=== PATIENT | male | born 1975 | race Caucasian/White ===

== ENCOUNTER 2021-11-13 19:31 | Emergency (ER) | payer MEDICAID, SELFPAY ==
[2021-11-13 19:32] VITALS: BP 154/94; PULSE 118; RESP 18; TEMP 36.6; O2SAT 95; BMI 34.0
--- NOTE | 2021-11-13 19:38 | W.ED.ALCOHOL ---
HPI - Alcohol General: Chief Complaint: Alcohol Stated Complaint: etoh Time Seen by Provider: 11/13/21 19:36 History of Present Illness: Mr Edwards is a 46-year-old gentleman without significant past medical history presents to the emergency department due to concern over alcohol detox. He reports due to social stressors he has been drinking heavily for approximately 2 weeks, he endorses greater than a fifth of vodka per day. He denies suicidal or homicidal intent. He denies history of alcohol withdrawal seizures or hallucinations associated with alcohol withdrawal. He plans to have inpatient detox but they will not pick him up till tomorrow. He endorses generalized malaise, shakiness, sweats. Intensity of symptoms is moderate. Last drink was just prior to arrival. Otherwise denies medical complaints or trauma. No other specific changes in health, exacerbating, or alleviating factors identified. 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 Recent trauma: No Associated symptoms: Reports nausea, vomiting and other Review of Systems General: Reports: 10 or more systems reviewed and unremarkable except in HPI and below GI: Reports: nausea and vomiting PFSH ED PFSH: Medical History (Updated 11/21/21 @ 00:00 by ) GERD (gastroesophageal reflux disease) Surgical History (Updated 11/13/21 @ 20:07 by Brice Lezama MD) No significant past surgical history Social History (Updated 11/13/21 @ 20:07 by Brice Lezama MD) Alcohol intake: current Substance/Drug Use: current Substance/Drug use type: Marijuana Physical Exam Const: COMMON NORMALS: alert GENERAL APPEARANCE: cooperative and well developed HENMT: COMMON NORMALS: normocephalic and atraumatic HEAD & SCALP: normocephalic and atraumatic THROAT: posterior oropharynx normal Eye: COMMON NORMALS: conjunctivae normal CONJUNCTIVA: Yes conjunctivae normal SCLERA: sclerae normal Neck/C-Spine: COMMON NORMALS: supple GENERAL: Yes trachea midline Resp: COMMON NORMALS: clear to auscultation bilaterally EFFORT & INSPECTION: Yes able to speak in complete sentences AUSCULTATION: clear to auscultation bilaterally Cardio: COMMON NORMALS: regular rhythm RATE: tachycardic RHYTHM: regular rhythm GI: COMMON NORMALS: Soft to palpation PALPATION: Yes Soft to palpation and No Tenderness to palpation present (GI) Extremity: GENERAL: Yes normal exam except as noted and No edema Neuro: COMMON NORMALS: moves all extremities SENSORIUM/ORIENTATION: Yes alert and No Orientation impaired Psych: COMMON NORMALS: mental status grossly normal and Normal thought process present THOUGHT PROCESS: Normal thought process present Course ED course: - Patient was seen and evaluated by me at bedside - Patient placed on cardiac monitors, IV access obtained - Initial evaluation notable for exam as above - Labs personally interpreted by me - Fluids and antiemetic as well as benzodiazepines - Labs notable for no significant hematologic abnormality. Metabolic panel consistent with reported history. Alcohol level elevated. - Upon serial reexamination after treatment the patient was significantly improved. He tolerated p.o. intake and is able to ambulate with steady gait. - Based on patient history, evaluation, and testing as interpreted the most likely cause of the patient's condition is alcohol abuse - The results of ED evaluation were discussed with the patient including prescriptions and/or symptomatic cares (if applicable) including appropriate and responsible use, followup plan, and return precautions. The patient verbalized understanding and felt safe for discharge. - Patient discharged in satisfactory condition. Note: Click bubbles or prepopulated chicas in note writing are used for assistance with data collection and billing and are inherently more limited than narrative and other text portions of this note. Please use narrative for additional clinical history and defer to narrative/free test for any case of contradictory information. If information appears in only free text or click bubble it should be considered present or absent as reported. Please contact note loan underwriter for clarifications of clinical information or contradictory information. MDM is a brief summary, contradictory or erroneous seeming information should be clarified and full note should be reviewed. Vital Signs: Vital signs: Vital Signs Temperature 97.8 F 11/13/21 19:32 Pulse Rate 87 11/13/21 23:05 Respiratory Rate 18 11/13/21 23:05 Blood Pressure 139/75 11/13/21 23:05 Pulse Oximetry 96 11/13/21 23:05 MDM - Alcohol Medical Decision Making 46-year-old gentleman with history of alcohol abuse presenting for concern of withdrawal. Patient ethyl alcohol initially 244 and no concerning history regarding cessation of alcohol provided. Improved with treatment. Patient has outpatient plan, plan to discharge on Librium taper. Patient agreeable. Medical Records I reviewed the patient's medical records. Lab Data I reviewed the patient's lab results. : 11/13/21 20:15 11/13/21 20:15 Laboratory Results WBC 7.1 10^3/uL (4.0-10.0) 11/13/21 20:15 RBC 4.97 10^6/uL (4.1-5.3) 11/13/21 20:15 Hgb 14.7 g/dL (11.7-16.6) 11/13/21 20:15 Hct 42.1 % (42.0-52.0) 11/13/21 20:15 MCV 84.7 fl (80-94) 11/13/21 20:15 MCH 29.6 pg (28.0-34.0) 11/13/21 20:15 MCHC 34.9 g/dL (30.0-36.0) 11/13/21 20:15 RDW 12.7 % (12.1-15.1) 11/13/21 20:15 Plt Count 144 10^3/cmm (130-400) 11/13/21 20:15 MPV 9.9 fL (7.4-10.4) 11/13/21 20:15 Neut % (Auto) 63.4 % 11/13/21 20:15 Lymph % (Auto) 23.3 % 11/13/21 20:15 [place] % (Auto) 10.2 % 11/13/21 20:15 Eos % (Auto) 2.0 % 11/13/21 20:15 Baso % (Auto) 0.8 % 11/13/21 20:15 Neut # (Auto) 4.48 10^3/uL (1.8-7.7) 11/13/21 20:15 Lymph # (Auto) 1.7 10^3/uL (0.8-4.8) 11/13/21 20:15 [place] # (Auto) 0.7 10^3/uL (0.2-0.9) 11/13/21 20:15 Eos # (Auto) 0.1 10^3/uL (0.0-0.8) 11/13/21 20:15 Baso # (Auto) 0.1 10^3/uL (0.0-0.1) 11/13/21 20:15 Nucleated RBC % (auto) 0 % 11/13/21 20:15 Nucleated RBCs # 0.0 /100WBC 11/13/21 20:15 Sodium 137 mmol/L (136-145) 11/13/21 20:15 Potassium 3.5 mmol/L (3.5-5.1) 11/13/21 20:15 Chloride 96 mmol/L (98-107) L 11/13/21 20:15 Carbon Dioxide 21 mmol/L (22-29) L 11/13/21 20:15 Anion Gap 23.5 (5-19) H 11/13/21 20:15 BUN 10 mg/dL (6-20) 11/13/21 20:15 Creatinine 0.8 mg/dL (0.7-1.2) 11/13/21 20:15 GFR Calculation 104.5 mL/min (90-130) 11/13/21 20:15 Glucose 108 mg/dL (65-115) 11/13/21 20:15 Calculated Osmolality 284 mOsm/kg (285-295) L 11/13/21 20:15 Calcium 8.3 mg/dL (8.5-10.5) L 11/13/21 20:15 Total Bilirubin 0.6 mg/dL (0.15-1.2) 11/13/21 20:15 AST 106 U/L (0-40) H 11/13/21 20:15 ALT 73 U/L (0-41) H 11/13/21 20:15 Alkaline Phosphatase 96 IU/L (40-130) 11/13/21 20:15 Total Protein 8.8 g/dL (6.6-8.7) H 11/13/21 20:15 Albumin 4.7 g/dL (3.5-5.2) 11/13/21 20:15 Globulin 4.1 g/dL (1.3-4.6) 11/13/21 20:15 TSH 0.84 uIU/mL (0.27-4.20) 11/13/21 20:15 Salicylates < 0.3 mg/dL (3-10) L 11/13/21 20:15 Urine Opiates Screen Negative ng/mL (Negative) 11/13/21 20:15 Acetaminophen < 5.0 ug/mL (10-30) L 11/13/21 20:15 Ur Barbiturates Screen Negative ng/mL (Negative) 11/13/21 20:15 Ur Phencyclidine Scrn Negative ng/mL (Negative) 11/13/21 20:15 Ur Amphetamines Screen Negative ng/mL (Negative) 11/13/21 20:15 U Benzodiazepines Scrn Negative ng/mL (Negative) 11/13/21 20:15 Urine Cocaine Screen Negative ng/mL (Negative) 11/13/21 20:15 U Marijuana (THC) Screen Positive ng/mL (Negative) H 11/13/21 20:15 Ethyl Alcohol 244 mg/dL (0-10) H 11/13/21 20:15 Discharge Plan Discharge Patient Disposition: Home Clinical Impression: Alcoholic intoxication, Dehydration Condition: Stable Prescriptions: New chlordiazepoxide HCl 25 mg capsule See Rx Instructions .ROUTE .COMPLEX PRN (Reason: alcohol withdrawal) Qty: 15 0RF Rx Instructions: Day 1: 50mg q6h Day 2: 25mg q6h Day 3: 25mg q12h Day 4: 25mg at night ondansetron 4 mg tablet,disintegrating 4 mg PO Q8H PRN (Reason: nausea and vomiting) Qty: 15 0RF Discharge Orders: Discharge ED (Routine); Ordered 11/13/21 Ordered By: Brice Lezama Discharge Diet: Usual diet Discharge Activity: Increase activity as tolerated Patient Instructions: Abuse of Alcohol (ED) Activity Restrictions/Additional Instructions: Thank you for visiting the emergency department. You were seen evaluated for concern of withdrawal. You are likely having effects from alcohol intoxication. Please continue to follow-up with your plan for inpatient alcohol treatment. You will be given a prescription for medication to help ease alcohol withdrawal symptoms however there are not medications that completely you are eliminate symptoms. Please follow-up with your primary care provider. Return to the emergency department for anything that you are concerned about a feel needs emergency department evaluation. 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
--- NOTE | 2021-11-13 19:39 | ECG_ITS ---
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 Measurements Intervals [place] Rate: 111 P: 53 LA: 120 QRS: 16 QRSD: 105 T: 55 QT: 330 QTc: 450 Interpretive Statements SINUS TACHYCARDIA No previous ECG available for comparison Electronically Signed On 11-14-2021 12:12:50 CDT by Corey Jackson M.D. [email or web address]
[2021-11-13] MEDS: sodium chloride 0.9% 1,000 ML 999 ML IV (20:28)
[2021-11-13] MEDS: ondansetron 2 mg/ML SDV 2 mL 4 MG IVP (20:28)
[2021-11-13 20:34] LABS: Basophils # 0.1 10^3/uL (0.0-0.1); Basophils % 0.8 %; Eosinophils # 0.1 10^3/uL (0.0-0.8); Hematocrit 42.1 % (42.0-52.0); Hemoglobin 14.7 g/dL (11.7-16.6); Lymphocytes # 1.7 10^3/uL (0.8-4.8); Lymphocytes % 23.3 %; Mean Corpuscular HGB Conc 34.9 g/dL (30.0-36.0); Mean Corpuscular Hemoglobin 29.6 pg (28.0-34.0); Mean Corpuscular Volume 84.7 fl (80-94); Mean Platelet Volume 9.9 fL (7.4-10.4); Monocytes # 0.7 10^3/uL (0.2-0.9); Monocytes % 10.2 %; Neutrophils # 4.48 10^3/uL (1.8-7.7); Neutrophils % 63.4 %; Nucleated Red Blood Cells % 0 %; Platelet Count 144 10^3/cmm (130-400); Red Blood Count 4.97 10^6/uL (4.1-5.3); Red Cell Distribution Width 12.7 % (12.1-15.1); White Blood Count 7.1 10^3/uL (4.0-10.0)
[2021-11-13 20:47] LABS: Amphetamines Screen Urine Negative (Negative); Barbiturates Screen Urine Negative (Negative); Benzodiazepines Screen Urine Negative (Negative); Cocaine Screen Urine Negative (Negative); Opiate Screen Urine Negative (Negative); PCP Screen Urine Negative (Negative); THC Screen Urine Positive (Negative)
[2021-11-13 21:01] LABS: Alanine Aminotransferase 73 U/L (0-41); Albumin Level 4.7 g/dL (3.5-5.2); Alcohol Level 244 mg/dL (0-10); Alkaline Phosphatase 96 IU/L (40-130); Anion Gap 23.5 (5-19); Aspartate Amino Transferase 106 U/L (0-40); Blood Urea Nitrogen 10 mg/dL (6-20); Calcium 8.3 mg/dL (8.5-10.5); Carbon Dioxide 21 mmol/L (22-29); Chloride 96 mmol/L (98-107); Globulin 4.1 g/dL (1.3-4.6); Glomerular Filtration Rate 104.5 mL/min (90-130); Glucose 108 mg/dL (65-115); Osmolality Calculated 284 mOsm/kg (285-295); Potassium 3.5 mmol/L (3.5-5.1); Sodium 137 mmol/L (136-145); Thyroid Stimulating Hormone 0.84 uIU/mL (0.27-4.20); Total Bilirubin 0.6 mg/dL (0.15-1.2); Total Protein 8.8 g/dL (6.6-8.7)
[2021-11-13 21:05] LABS: Acetaminophen < 5.0 ug/mL (10-30); Salicylate < 0.3 mg/dL (3-10)
--- NOTE | 2021-11-13 22:00 | PC.NURSE ---
patient ambulated length of ED [place] and back to room with steady gait.
[2021-11-13] MEDS: LORazepam 2 mg/mL INJ 1 mL 1 MG IVP (22:05)
[2021-11-13 22:07] VITALS: BP 149/101; PULSE 111; RESP 18; O2SAT 94
[2021-11-13 23:05] VITALS: BP 139/75; PULSE 87; RESP 18; O2SAT 96
== END 2021-11-13 23:06 | disposition home or self-care (01) ==
PROVIDERS: Emergency Provider Emergency Medicine
DX: F10.129 Alcohol abuse with intoxication, unspecified (principal); Y90.8 Blood alcohol level of 240 mg/100 ml or more; E86.0 Dehydration
CPT/HCPCS: 80053; 80306; 80307; 84443; 85025; 93005; 96361; 96374; 96375; 99284; J2060; J2405; J7030